=== PATIENT | female | born 1970 | race Caucasian/White ===

== ENCOUNTER 2020-04-09 19:58 | Emergency (ER) | payer SELFPAY ==
[2020-04-09 21:47] LABS: Absolute Lymphocytes (CBC) 1.8 K/uL (0.7-4.9); Basophils % 1.1 % (0-1.3); Hematocrit 31.4 % (36.0-45.0); Lymphocytes % 23.9 % (15.3-44.8); MPV 8.8 fL (7.6-11.3); RBC Red Blood Cell Count 4.77 M/uL (3.86-4.86)
--- NOTE | 2020-04-09 21:50 | RAD REPORT ---
EXAM DESCRIPTION: RAD - Chest Single View - 04/09/2020 8:21 pm CLINICAL HISTORY: PALPITATIONS COMPARISON: None TECHNIQUE: AP portable chest image was obtained 04/09/2020 8:21 pm . FINDINGS: Lungs are clear. Heart and vasculature are normal. No measurable pleural effusion and no p neumothorax. No acute bony abnormality seen. No acute aortic findings suspected. IMPRESSION: No acute cardiopulmonary process.
[2020-04-09 22:09] LABS: BUN Blood Urea Nitrogen 21 mg/dL (7-18); Bicarbonate 27 mmol/L (21-32); Glucose Level 90 mg/dL (74-106); Potassium 3.9 mmol/L (3.5-5.1); Sodium Level 145 mmol/L (136-145); Troponin (Emerg Dept Use Only) < 0.02 ng/mL (0.0-0.045)
[2020-04-09 22:18] LABS: Anisocytosis 2+; Blood Morphology Comment NOTED (NOT SEEN); Elliptocytes 1+; Hypochromasia 2+; Platelet Estimate ADEQ; Target Cells 1+; Urine White Blood Cell Casts OK
--- NOTE | 2020-04-09 22:54 | EDPHYS ---
Physician Documentation [facility] Name: Germania Gonzáles Age: 49 yrs Sex: Female : 1970 Arrival Date: 04/09/2020 Time: 20:00 Bed 20 Private MD: ED Physician Maciel Rubi HPI: 04/09 22:54 This 49 yrs old Female presents to ER via EMS with complaints of Abdominal kb Pain. 20:22 The patient presents with a history of flutter. Context: The symptoms occur with kb stress. Onset: The symptoms/episode began/occurred just prior to arrival. Duration: The patient or guardian reports a single episode, that is now resolved. Modifying factors: The symptoms are aggravated by nothing. The symptoms are alleviated by nothing. Associated signs and symptoms: Pertinent positives: dizziness, weakness. Severity of symptoms: At their worst the symptoms were moderate in the emergency department the symptoms have resolved. The patient has experienced similar episodes in the past, a few times. The patient has not recently seen a physician. Pt states she was texting her daughter and started feeling a flutter in her epigastric area that moved up into her chest. Then started feeling dizzy and weak. "I started freaking out about it." Symptoms resolved at this time. Pt reports history of the fluttering sensation in the past due to stress. States she hasn't been sleeping a lot. Now only feels tired, but could be due to lack of sleep. 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 - Social history:: Smoking status: Patient reports the use of cigarette tobacco products, smokes one pack cigarettes per day. ROS: 20:17 Constitutional: Negative for fever, chills, and weight loss, Neck: Negative for injury, kb pain, and swelling, Respiratory: Negative for shortness of breath, cough, wheezing, and pleuritic chest pain, Abdomen/GI: Negative for abdominal pain, nausea, vomiting, diarrhea, and constipation, Back: Negative for injury and pain, MS/Extremity: Negative for injury and deformity, Skin: Negative for injury, rash, and discoloration. 20:17 Cardiovascular: Positive for palpitations, Negative for chest pain, edema, orthopnea, paroxysmal nocturnal dyspnea. 20:17 Neuro: Positive for dizziness, weakness. Exam: 20:17 Constitutional: This is a well developed, well nourished patient who is awake, alert, kb and in no acute distress. Head/Face: Normocephalic, atraumatic. ENT: Nares patent. No nasal discharge, no septal abnormalities noted. Tympanic membranes are normal and external auditory canals are clear. Oropharynx with no redness, swelling, or masses, exudates, or evidence of obstruction, uvula midline. Mucous membranes moist. Neck: Trachea midline, no thyromegaly or masses palpated, and no cervical lymphadenopathy. Supple, full range of motion without nuchal rigidity, or vertebral point tenderness. No Meningismus. Chest/axilla: Normal chest wall appearance and motion. Nontender with no deformity. No lesions are appreciated. Cardiovascular: Regular rate and rhythm with a normal S1 and S2. No gallops, murmurs, or rubs. Normal PMI, no JVD. No pulse deficits. Respiratory: Lungs have equal breath sounds bilaterally, clear to auscultation and percussion. No rales, rhonchi or wheezes noted. No increased work of breathing, no retractions or nasal flaring. Abdomen/GI: Soft, non-tender, with normal bowel sounds. No distension or tympany. No guarding or rebound. No evidence of tenderness throughout. Skin: Warm, dry with normal turgor. Normal color with no rashes, no lesions, and no evidence of cellulitis. MS/ Extremity: Pulses equal, no cyanosis. Neurovascular intact. Full, normal range of motion. Neuro: Awake and alert, GCS 15, oriented to person, place, time, and situation. Cranial nerves II-XII grossly intact. Motor strength 5/5 in all extremities. Sensory grossly intact. Cerebellar exam normal. Normal gait. Vital Signs: 20:00 BP 144 / 74; Pulse 94; Resp 18; Pulse Ox 97% ; ll1 20:02 BP 141 / 67; Pulse 94; Resp 18; Temp 98.6(O); Pulse Ox 98% on R/A; Weight 81.65 kg (R); lp1 Height 5 ft. 5 in. (165.10 cm); Pain 0/10; 20:30 BP 131 / 71; Pulse 86; Resp 18; Pulse Ox 95% ; ll1 21:00 BP 128 / 79; Pulse 82; Resp 17; Pulse Ox 95% ; ll1 21:30 BP 123 / 68; Pulse 84; Resp 18; Pulse Ox 98% ; ll1 22:00 BP 129 / 69; Pulse 75; Resp 18; Pulse Ox 98% ; ll1 23:00 BP 135 / 75; Pulse 77; Resp 17; Pulse Ox 99% ; Pain 0/10; ll1 20:02 Body Mass Index 29.95 (81.65 kg, 165.10 cm) lp1 MDM: 20:09 Patient medically screened. kb 20:17 Data reviewed: vital signs, nurses notes. Data interpreted: Pulse oximetry: on room air kb is 98 %. Interpretation: normal. 22:53 Counseling: I had a detailed discussion with the patient and/or guardian regarding: the kb historical points, exam findings, and any diagnostic results supporting the discharge/admit diagnosis, lab results, radiology results, the need for outpatient follow up, a family practitioner, to return to the emergency department if symptoms worsen or persist or if there are any questions or concerns that arise at home. 04/09 20:14 Order name: CBC with Diff; Complete Time: 22:53 kb 04/09 20:14 Order name: Basic Metabolic Panel; Complete Time: 22:53 kb 04/09 20:14 Order name: EKG; Complete Time: 20:14 kb 04/09 20:14 Order name: Chest Single View XRAY; Complete Time: 21:55 kb 04/09 20:14 Order name: Troponin (emerg Dept Use Only); Complete Time: 22:53 kb 04/09 22:18 Order name: CBC Smear Scan; Complete Time: 22:53 EDMS 04/09 20:14 Order name: EKG - Nurse/Tech; Complete Time: 21:08 kb 04/09 20:14 Order name: IV Start; Complete Time: 22:16 kb Administered Medications: No medications were administered Disposition: 04/10 06:24 Co-signature as Attending Physician, Maciel Rubi MD. [email or web address] Disposition: 06/06/20 22:54 Discharged to Home. Impression: Palpitations. - Condition is Stable. - Discharge Instructions: Palpitations, [id number]. - Medication Reconciliation Form, Thank You Letter, Antibiotic Education, Prescription Opioid Use form. - Follow up: Emergency Department; When: As needed; Reason: Worsening of condition. Follow up: Private Physician; When: 2 - 3 days; Reason: Recheck today's complaints, Continuance of care, Re-evaluation by your physician. Signatures: Dispatcher [employer] EDAngely Lazaro, KAYLAH-C KAYLAH-Roopa Bauer, RN RN lp1 Misha Barros RN RN ll1 Maciel Rubi MD MD [email or web address] Corrections: (The following items were deleted from the chart) 04/09 23:15 22:54 04/09/2020 22:54 Discharged to Home. Impression: Palpitations. Condition is ll1 Stable. Forms are Medication Reconciliation Form, Thank You Letter, Antibiotic Education, Prescription Opioid Use. Follow up: Emergency Department; When: As needed; Reason: Worsening of condition. Follow up: Private Physician; When: 2 - 3 days; Reason: Recheck today's complaints, Continuance of care, Re-evaluation by your physician. kb
--- NOTE | 2020-04-09 22:54 | ER ---
Nurse's Notes [facility] Name: Germania Gonzálse Age: 49 yrs Sex: Female : 1970 Arrival Date: 04/09/2020 Time: 20:00 Bed 20 Private MD: Diagnosis: Palpitations Presentation: 04/09 20:02 Chief complaint: EMS states: Called for patient after she was having argument through lp1 text with daughter, began to feel fluttering in abdomen that radiated to chest up to throat, states hearing buzzing in ears and feeling short of breath; States similar symptoms when under stress, but this episode was worse; Symptoms resolved at this time. Coronavirus screen: Proceed with normal triage. Ebola Screen: No symptoms or risks identified at this time. Initial Sepsis Screen: Does the patient meet any 2 criteria? No. Patient's initial sepsis screen is negative. Does the patient have a suspected source of infection? No. Patient's initial sepsis screen is negative. Risk Assessment: Do you want to hurt yourself or someone else? Patient reports no desire to harm self or others. Onset of symptoms was April 09, 2020. 20:02 Method Of Arrival: EMS: [facility] lp1 20:02 Acuity: DANNIELLE 3 lp1 Triage Assessment: 23:13 General: Behavior is calm, cooperative, appropriate for age. 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 - Social history:: Smoking status: Patient reports the use of cigarette tobacco products, smokes one pack cigarettes per day. Screenin:05 Abuse screen: Denies threats or abuse. Denies injuries from another. Nutritional lp1 screening: No deficits noted. Tuberculosis screening: No symptoms or risk factors identified. Fall Risk None identified. Assessment: 21:00 General: Appears. Pain: Denies pain. Neuro: Level of Consciousness is awake, alert, ah Oriented to person, place, time, situation, Police Commissioner are equal bilaterally. Cardiovascular: Capillary refill < 3 seconds Patient's skin is warm and dry. Rhythm is sinus rhythm. Respiratory: Airway is patent Respiratory effort is even, unlabored, Respiratory pattern is regular, symmetrical. GI: Bowel sounds present X 4 quads. Abd is soft and non tender. Derm: Skin is intact, is healthy with good turgor. 22:00 Reassessment: Patient appears in no apparent distress at this time. No changes from ll1 previously documented assessment. Patient and/or family updated on plan of care and expected duration. Pain level reassessed. Patient is alert, oriented x 3, equal unlabored respirations, skin warm/dry/pink. 23:00 Reassessment: Patient appears in no apparent distress at this time. No changes from ll1 previously documented assessment. Patient and/or family updated on plan of care and expected duration. Pain level reassessed. Patient is alert, oriented x 3, equal unlabored respirations, skin warm/dry/pink. Vital Signs: 20:00 BP 144 / 74; Pulse 94; Resp 18; Pulse Ox 97% ; ll1 20:02 BP 141 / 67; Pulse 94; Resp 18; Temp 98.6(O); Pulse Ox 98% on R/A; Weight 81.65 kg (R); lp1 Height 5 ft. 5 in. (165.10 cm); Pain 0/10; 20:30 BP 131 / 71; Pulse 86; Resp 18; Pulse Ox 95% ; ll1 21:00 BP 128 / 79; Pulse 82; Resp 17; Pulse Ox 95% ; ll1 21:30 BP 123 / 68; Pulse 84; Resp 18; Pulse Ox 98% ; ll1 22:00 BP 129 / 69; Pulse 75; Resp 18; Pulse Ox 98% ; ll1 23:00 BP 135 / 75; Pulse 77; Resp 17; Pulse Ox 99% ; Pain 0/10; ll1 20:02 Body Mass Index 29.95 (81.65 kg, 165.10 cm) lp1 ED Course: 20:00 Patient arrived in ED. cl3 20:04 Triage completed. lp1 20:04 Arm band placed on. lp1 20:09 Angely Gomez FNP-C [facility]. kb 20:09 Maciel Rubi MD is Attending Physician. kb 20:21 Chest Single View XRAY In Process Unspecified. EDMS 20:29 Viridiana Alas, RN is Primary Nurse. 21:33 Inserted saline lock: 18 gauge in right antecubital area, using aseptic technique. oe Blood collected. 23:12 No provider procedures requiring assistance completed. IV discontinued. ll1 23:14 Patient has correct armband on for positive identification. Bed in low position. [facility] light in reach. Side rails up X 1. alarm security or surveillance monitor on. Pulse ox on. NIBP on. Administered Medications: No medications were administered Outcome: 22:54 Discharge ordered by . elvira 23:14 Discharged to home ambulatory. ll1 23:14 Condition: stable 23:14 Discharge instructions given to patient, Instructed on discharge instructions, follow up and referral plans. Demonstrated understanding of instructions, follow-up care. 23:15 Patient left the ED. 1 Signatures: Dispatcher [employer] EDMS Angely Gomez, LEAD ENGINEER-C LEAD ENGINEER-Ckb Roopa Cuenca, RN RN lp1 Jaime Berman Charde cl3 Viridiana Alas, RN RN Misha Barros, RN RN [facility]
[2020-04-09 23:21] VITALS: TEMP 98.6
[2020-04-09 23:27] VITALS: BP 135/75; O2SAT 99
--- NOTE | 2020-04-11 07:47 | EKG ---
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
== END 2020-04-09 23:15 | disposition home or self-care (01) ==
LOC: ER 19:58
DX: R00.2 Palpitations (principal); F17.210 Nicotine dependence, cigarettes, uncomplicated; Z88.6 Allergy status to analgesic agent
CPT/HCPCS: 36415; 71045; 80048; 84484; 85025; 93005; 99284